=== PATIENT | female | born 1995 | race Caucasian/White ===

== ENCOUNTER 2025-02-11 14:28 | Emergency (ER) | payer OTHER ==
[~2025-02-11] VITALS: Ht 170.2 cm; Wt 95.9 kg
[2025-02-11] MEDS: LIDOCAINE 5% PATCH TD ONE (17:21)
[2025-02-11 17:22] VITALS: BP 161/85; TEMP 97.3; O2SAT 100
== END 2025-02-11 17:26 | disposition home or self-care (01) ==
LOC: M ED 14:28
DX: M62.838 Other muscle spasm (principal); Z91.018 Allergy to other foods